=== PATIENT | male | born 1970 | race Caucasian/White ===

== ENCOUNTER → 2020-05-31 | Outpatient (CLI) | payer BC | END | disposition home or self-care (01) | LOC: RAH 08:48 | PROVIDERS: ATTEND Internal Medicine | DX: K76.6 Portal hypertension (principal); K74.69 Other cirrhosis of liver; D69.6 Thrombocytopenia, unspecified | CPT/HCPCS: 76700 ==

== ENCOUNTER → 2025-01-13 | Outpatient (CLI) | payer BC ==
--- NOTE | 2025-01-13 11:10 | HMCIMG ---
US VENOUS DOPPLER BILATERAL REASON: LOCALIZED SWELLING,MASS COMPARISON: None Technique: Bilateral venous doppler ultrasound was performed with spectral analysis and color flow imaging technique. FINDINGS: There is occlusive thrombus in the left common femoral as well as the proximal and mid superficial femoral vein on the left. Greater saphenous vein is patent as is the profunda femoris. Distal superficial femoral vein is patent as are the popliteal and posterior tibial veins. There is a normal appearance of the right common femoral, deep femoral, the profunda femoris and popliteal veins. Proximal right calf veins appear normal as well. There is normal response to compression and augmentation. There is no evidence of right-sided deep venous thrombosis. IMPRESSION: 1. Positive deep venous thrombosis on the left in the common femoral as well as the proximal and mid superficial femoral vein. 2. Normal findings on the right.
== END | disposition home or self-care (01) ==
LOC: RAH 09:57
PROVIDERS: ATTEND Internal Medicine Gastroenterology
DX: I82.412 Acute embolism and thrombosis of left femoral vein (principal); I82.4Z2 Acute embolism and thrombosis of unspecified deep veins of left distal lower extremity; I82.4Y2 Acute embolism and thrombosis of unspecified deep veins of left proximal lower extremity; I82.492 Acute embolism and thrombosis of other specified deep vein of left lower extremity; R22.43 Localized swelling, mass and lump, lower limb, bilateral
CPT/HCPCS: 93970